=== PATIENT | female | born 1995 | race Caucasian/White ===

== ENCOUNTER 2017-04-15 19:35 | Emergency (ER) | payer BC ==
--- NOTE | 2017-04-15 20:32 | DIAGNOSTIC IMAGING REPORT ---
PROCEDURE: CT HEAD WITHOUT CONTRAST INDICATION: Fell off horse. TECHNIQUE: Noncontrast axial images with sagittal and coronal reformations. COMPARISON: None. FINDINGS: Sulci, ventricular system, and brain parenchyma are normal. No evidence of acute intracranial process. Left parietal scalp contusion. No fracture. Visualized mastoids and sinuses are clear. IMPRESSION: 1. No acute intracranial abnormality 2. Left parietal scalp contusion 3. Findings discussed with Dr. Gutierrez at 08:33 p.m., [place] Standard Time
--- NOTE | 2017-04-15 20:44 | DIAGNOSTIC IMAGING REPORT ---
PROCEDURE: CT CERVICAL SPINE W/O CONTRAST CLINICAL INDICATION: Fell off horse TECHNIQUE: Noncontrast axial images with sagittal and coronal reformations. COMPARISON: None. FINDINGS: Fracture of the right occipital condyle, fragment measuring 7 mm, with minimal displacement. No additional fractures. Straightening of the cervical spine. No foraminal or spinal stenosis. Paraspinal soft tissues are unremarkable. IMPRESSION: 1. Right occipital condyle fracture with minimal displacement 2. Results discussed with Dr. Gutierrez All CT scans at this facility use dose modulation, iterative reconstruction, and/or weight-based dosing when appropriate to reduce radiation dose to as low as reasonably achievable.
--- NOTE | 2017-04-15 20:44 | DIAGNOSTIC IMAGING REPORT ---
PROCEDURE: CT SINUS/FACIAL BONES W/O CONT CLINICAL INDICATION: Fell from horse. TECHNIQUE: Noncontrast axial images with coronal reformations. COMPARISON: None. FINDINGS: Fracture of the right occipital condyle with minimal displacement. Mandible, nasal bone, zygomatic arches and pterygoid plates are intact. Normal paranasal sinuses and mastoids. Normal globes and orbits. Left parietal scalp and scalp contusion. Normal zygomatic arches. IMPRESSION: 1. Fracture of the right occipital condyle with minimal displacement. 2. Results discussed with Dr. Gutierrez All CT scans at this facility use dose modulation, iterative reconstruction, and/or weight-based dosing when appropriate to reduce radiation dose to as low as reasonably achievable.
--- NOTE | 2017-04-15 21:33 | DIAGNOSTIC IMAGING REPORT ---
PROCEDURE: CT THORAX ABD PELVIS W/CONT INDICATION: Fell from horse. TECHNIQUE: 125 ml of Isovue 300 injected intravenously and axial images were obtained of the entire thorax, abdomen, and pelvis with sagittal and coronal reformations. COMPARISON: None. FINDINGS: THORAX: Minor left basilar atelectasis and pleural effusion. No pneumothorax. No adenopathy. Normal thoracic aorta without dissection or aneurysm. There is no mediastinal hematoma. Residual thymus tissue. Heart size is normal. No fracture. ABDOMEN: Liver, gallbladder, pancreas, spleen, adrenal glands, kidneys and abdominal aorta are normal. No free fluid or free air. No fracture. PELVIS: The uterus, adnexa and bladder are normal. No free fluid or free air. No fracture. IMPRESSION: 1. Minor left basilar atelectasis and effusion but no evidence of a fracture 2. Results discussed with Dr. Gutierrez All CT scans at this facility use dose modulation, iterative reconstruction, and/or weight-based dosing when appropriate to reduce radiation dose to as low as reasonably achievable.
--- NOTE | 2017-04-15 21:37 | ED CLINICAL REPORT ---
Clinical Report - Physicians/Mid Levels [facility] [address] [place] [address] 04/15/2017 19:36 Patient: EDUARDO JOHNSON Time Seen: 1938. Arrived- By ambulance. Historian- patient and family. HISTORY OF PRESENT ILLNESS Location of injuries- (left flank, shoulder, face, head, neck). Chief Complaint: FALL. This occurred just prior to arrival. Occurred field. Fell (from horse). The patient complains of moderate pain. The patient sustained a blow to the head and complains of neck pain. The patient had loss of consciousness. (3 minutes). (Thrown forward from horse back. Horse was spooked and patient was launched forward.). REVIEW OF SYSTEMS No difficulty breathing. All systems otherwise negative, except as recorded above. PAST HISTORY See nurses notes. Tetanus immunization status is up-to-date. Problems: no known problems. Additional Surgeries: no known surgeries. Medications: Control Pills. Allergies: No Known Drug Allergy. SOCIAL HISTORY Never smoker. No alcohol use or drug use. No recent travel. Is a local resident. ADDITIONAL NOTES The nursing notes have been reviewed. PHYSICAL EXAM Vital Signs: 04/15/2017 20:16 BP: 125/60. HR: 100. O2 saturation: 100%. 04/15/2017 19:47 BP: 122/69. 04/15/2017 19:39 HR: 100. RR: 16. O2 saturation: 100%. Pain level now: 8/10. Oxygen saturation normal. Appearance: Alert. Oriented X3. No acute distress. Head: Head non-tender. No swelling of head. No Chairez's sign or raccoon eyes. Eyes: Pupils equal, round and reactive to light. Pupillary exam: Right pupil 3mm, round and reactive to light directly and consensually and with accommodation. Left pupil: 3mm, round and reactive to light directly and consensually and with accommodation. EOM intact. ENT: No dental injury. No hemotympanum. Pharynx normal. No malocclusion. Neck: Neck non-tender. Painless ROM. No vertebral tenderness. CVS: Heart sounds normal. Pulses normal. Respiratory: Breath sounds normal. Chest nontender. Abdomen: No visible injury. Soft and nontender. Bowel sounds normal. No organomegaly. No mass. Femoral pulses equal. Back: No tenderness. ROM normal. Skin: Skin intact. Skin warm and dry. Normal skin color. Normal skin turgor. (except for superficial abrasions to the left upper extremity and face.). Extremities: (left anterior shoulder and proximal arm tenderness. no crepitus. no maria de jesus abnormalities. compartments soft. neurovasc intact. pulses 2+ and symmetrical.). Neuro: [place] Coma Scale: 15- eyes open spontaneously (4); best verbal response- oriented x 3 (5); best motor response- obeys commands (6). Oriented X 3. No motor deficit. No sensory deficit. LABS, X-RAYS, AND EKG CT Face: PROCEDURE: CT CERVICAL SPINE W/O CONTRAST CLINICAL INDICATION: Fell off horse TECHNIQUE: Noncontrast axial images with sagittal and coronal reformations. COMPARISON: None. FINDINGS: Fracture of the right occipital condyle, fragment measuring 7 mm, with minimal displacement. No additional fractures. Straightening of the cervical spine. No foraminal or spinal stenosis. Paraspinal soft tissues are unremarkable. IMPRESSION: 1. Right occipital condyle fracture with minimal displacement. The study was independently viewed by me and interpreted by the radiologist. The study was discussed with the radiologist (via pacs and phone). CT C-Spine: (PROCEDURE: CT CERVICAL SPINE W/O CONTRAST CLINICAL INDICATION: Fell off horse TECHNIQUE: Noncontrast axial images with sagittal and coronal reformations. COMPARISON: None. FINDINGS: Fracture of the right occipital condyle, fragment measuring 7 mm, with minimal displacement. No additional fractures. Straightening of the cervical spine. No foraminal or spinal stenosis. Paraspinal soft tissues are unremarkable. IMPRESSION: 1. Right occipital condyle fracture with minimal displacement). The study was independently viewed by me and interpreted by the radiologist. The study was discussed with the radiologist (via phone and pacs). CT Head: (PROCEDURE: CT HEAD WITHOUT CONTRAST INDICATION: Fell off horse. TECHNIQUE: Noncontrast axial images with sagittal and coronal reformations. COMPARISON: None. FINDINGS: Sulci, ventricular system, and brain parenchyma are normal. No evidence of acute intracranial process. Left parietal scalp contusion. No fracture. Visualized mastoids and sinuses are clear. IMPRESSION: 1. No acute intracranial abnormality 2. Left parietal scalp contusion). The study was independently viewed by me and interpreted by the radiologist. The study was discussed with the radiologist (via pacs and phone). Note - Special Studies: PROCEDURE: CT THORAX ABD PELVIS W/CONT INDICATION: Fell from horse. TECHNIQUE: 125 ml of Isovue 300 injected intravenously and axial images were obtained of the entire thorax, abdomen, and pelvis with sagittal and coronal reformations. COMPARISON: None. FINDINGS: THORAX: Minor left basilar atelectasis and pleural effusion. No pneumothorax. No adenopathy. Normal thoracic aorta without dissection or aneurysm. There is no mediastinal hematoma. Residual thymus tissue. Heart size is normal. No fracture. ABDOMEN: Liver, gallbladder, pancreas, spleen, adrenal glands, kidneys and abdominal aorta are normal. No free fluid or free air. No fracture. PELVIS: The uterus, adnexa and bladder are normal. No free fluid or free air. No fracture. IMPRESSION: 1. Minor left basilar atelectasis and effusion but no evidence of a fracture Discussed with radiology via phone and pacs. Reviewed by me. Interpreted by radiology. Laboratory Tests: UA-Culture if indicated: (SUJEY: 04/15/2017 20:05) ( MsgRcvd 04/15/2017 20:21) Final results Test Result Flag Units (Reference) URINE COLOR YELLOW URINE APPEARANCE CLEAR URINE GLUCOSE NEGATIVE (NEGATIVE) URINE BILIRUBIN NEGATIVE (NEGATIVE) URINE KETONE TRACE (NEGATIVE) URINE SPECIFIC GRAVITY 1.015 (1.010-1.030) URINE PH 7.0 (5.0-8.0) URINE PROTEIN NEGATIVE (NEGATIVE) URINE UROBILINOGEN 0.2 EU/dL (0.2-1.0) URINE NITRITE NEGATIVE (NEGATIVE) URINE BLOOD NEGATIVE (NEGATIVE) URINE LEUK ESTERASE NEGATIVE (NEGATIVE) URINE RBC NONE SEEN rbc/hpf (0-1) URINE WBC NONE SEEN wbc/hpf (0-1) URINE EPITHELIAL CELLS 0-1 EPI/hpf (0-5) URINE BACTERIA NONE SEEN (NONE SEEN) URINE COMMENT CULT NOT INDICATED URINE CULTURES ARE SET-UP BASED ON THE FOLLOWING CRITERIA:POSITIVE NITRITEPOSITIVE LEUKOCYTE ESTERASEGREATER THAN 10 WHITE BLOOD CELLSMODERATE (2+) OR GREATER BACTERIA Urine: (SUJEY: 04/15/2017 20:05) ( [facility] 04/15/2017 20:16) Final results Test Result Flag Units (Reference) URINE NEGATIVE CBC w Diff: (SUJEY: 04/15/2017 19:50) ( [facility] 04/15/2017 20:09) Final results Test Result Flag Units (Reference) WHITE BLOOD COUNT 12.4 H K/uL (4.5-11.5) RED BLOOD COUNT 4.14 M/uL (4.00-5.20) HEMOGLOBIN 12.4 gm/dL (12.0-16.0) HEMATOCRIT 36.7 % (36.0-46.0) MEAN CELL VOLUME 89 fL (80-100) MEAN CORPUSCULAR HGB 30 pg (26-34) MEAN CORPUSCULAR HGB CONC 34 g/dL (31-37) RED CELL DISTRIBUTION WIDTH 13.3 % (11.6-14.8) PLATELET COUNT 195 K/uL (150-400) NEUTROPHIL % 73.4 % (50-75) LYMPH % 20.3 L % (25-40) MONO % 6.0 % (3-14) EOSINOPHIL % 0.1 % (0-4) BASOPHIL % 0.2 % (0-2) PT with INR: (SUJEY: 04/15/2017 19:50) ( [facility] 04/15/2017 20:16) Final results Test Result Flag Units (Reference) INR 0.9 (0.8-1.2) Low Intensity Therapy: INR 1.5-2.0 PT range 18.5-23.1Mod.Intensity Therapy: INR 2.0-3.0 PT range 23.1-31.5High Intensity Therapy: INR 2.5-3.5 PT range 27.4-35.5High Intensity Therapy 2: INR 3.0-4.0 PT range 31.5-39.3 APTT 23 L SECONDS (24-34) CMP: (SUJEY: 04/15/2017 19:50) ( [facility] 04/15/2017 20:24) Final results Test Result Flag Units (Reference) GLUCOSE 112 H mg/dL (70-110) BUN 8 mg/dL (7-18) CREATININE 0.8 mg/dL (0.6-1.3) Estimated GFR >60 mL/min Estimated GFR- >60 mL/min Note: Persistent reduction over 3 months in eGFR<60 mL/min/1.73 m2 defines CKD. Patients with eGFR values>=60 mL/min/1.73 m2 may also have CKD if evidence ofpersistent proteinuria. Additional information may be foundat www.kidney.org. SODIUM 143 mmol/L (136-145) POTASSIUM 3.7 mmol/L (3.5-5.1) CHLORIDE 106 mmol/L (98-107) CARBON DIOXIDE 24 mmol/L (21-32) CALCIUM 8.7 mg/dL (8.5-10.1) TOTAL PROTEIN 7.1 g/dL (6.4-8.2) ALBUMIN 3.5 g/dL (3.3-5.0) BILIRUBIN, TOTAL 0.3 mg/dL (0.0-1.0) ALKALINE PHOSPHATASE 41 L U/L (46-116) AST (SGOT) 34 U/L (15-37) ALT (SGPT) 39 U/L (12-78) LIPASE 73 U/L (73-393) Type & Screen: (SUJEY: 04/15/2017 19:50) ( MsgRcvd 04/15/2017 20:33) IP Test Result Flag Units (Reference) PATIENT BLOOD TYPE A Positive . PROGRESS AND PROCEDURES Course of Care: the patient is a pleasant 22-year-old female presenting for evaluation of traumatic injury to the left side of the torso as well as left shoulder neck, and face. Patient with loss of consciousness at about 3 minutes. Episode was witnessed. Pain is mechanism of injury given the patient was thrown from a horse. Because of this, CT scan of the patient's head, neck, face, and chest/abdomen and pelvis will be obtained. Initially, radiographs of the left upper extremity were ordered however because of the diagnostic technician was able to include the patient's arms and the CT scan,felt the CT scan was patient for evaluation of the patient's upper extremity injury. Was able to contact radiology in regards to the patient's CT scan results. Was informed by radiology of a Right occipital condyle fracture. Was able to contact spine surgery over at [facility]. We are currently awaiting the recommendations. Was able to contact the transfer service. Unfortunately there is a surgical emergency and the spine surgery team are currently unavailable. Patient will be monitored here in the emergency department and is currently awaiting disposition per spine surgery's recommendation. While patient was here, patient has had a few episodes of nausea. Patient has been given nausea medication. Patient unfortunately continued to have an episode of nausea when she awokefrom a short nap. Phenergan was ordered. No other acute abnormalities noted. Patient continues to be neuro intact. Was able to speak to spine surgery at [facility]. recommeneded patient having films while in the color to assess for instability. Patient also can follow up in clinic. Patient agreeable to the plan. Films did not show any signs of instability. Because no shift was noted, felt the patient did not need to be transferred to [facility]. Discussed with patient her workup in the emergency department including diagnosis, home care, follow-up, and return precautions. All questions have been answered. The patient expressed understanding of these instructions and was agreeable to them. Prior to patient's discharge from the emergency department she was noted to resting in bed and in no acute distress. Neurological examination remains intact. Consult obtained. [facility] spine surgery. Disposition: Discharged. Condition: good. CLINICAL IMPRESSION Minor blunt injury to the abdomen (left flank). Closed occipital condyle fracture. Acute cervical strain (left sided). Multiple superficial abrasions. (left face and left upper extremity). INSTRUCTIONS Warnings: GENERAL WARNINGS: Return or contact your physician immediately if your condition worsens or changes unexpectedly, if not improving as expected, or if other problems arise. SPECIFICALLY, return if you develop weakness, numbness, tingling, pain or incontinence. abnormal behavior, changes in vision, or other concerns. Your Current Medications: CONTINUE TAKING THE FOLLOWING MEDICATIONS: Control Pills*. Prescription Medications: Zofran (orally disintegrating tablets) 4 mg: take 1 orally every 8 hours as needed for nausea and vomiting. Dispense fifteen (15). No refill. Substitution is permissible. Percocet 5 mg/325 mg: take 1-2 tablets orally every 6 hours as needed for pain. Dispense thirty (30). No refill. Substitution is permissible. Follow-up: Return to the emergency department as needed. Follow up with your doctor in three days. Reason for referral: recheck today's concerns. Summary of care provided to patient via paper. Follow up with doctor Ortho spine. Reason for referral: recheck today's concerns in 1 - 2 weeks. Call if they do not contact you next week with your appointment time.. Summary of care provided to patient and family via paper. Screening today revealed the patient's blood pressure to be in the normal range. The patient should follow up with a primary care provider for blood pressure management. Understanding of the discharge instructions verbalized by patient and family. (Electronically signed by Lemuel Gutierrez Dr. 04/23/2017 4:35)
--- NOTE | 2017-04-15 21:37 | ED ORDER SUMMARY ---
..... Patient: EDUARDO JOHNSON OrderSheet [facility] VisitID: [id number] [place] [address] 22y, F Registration Date/Time: 04/15/2017 ORDER SHEET Weight: 79.3 kg (stated) Allergies: No Known Drug Allergy GENERAL ORDERS: CT Cervical Spine wo Cont Urgent (19:44 04/15/2017 Sg Hunt) (Ack 19:50 OSjose m) (20:37 Ezekiel) CT Head wo Cont Urgent (19:45 04/15/2017 Sg Hunt) (Ack 19:50 OSnell) (20:37 Ezekiel) CT Sinus/Facial Bones wo Cont Urgent (:45 04/15/2017 Sg Hunt) (Ack 19:50 OSnell) (20:37 Ezekiel) CT Thorax/Abd/Pelvis w Cont (No) (N/A) Urgent (:45 04/15/2017 Sg Hunt) (Ack 19:50 OSjose m) (20:37 Ezekiel) CBC w Diff Urgent (19:45 04/15/2017 Sg Hunt) (Ack 19:50 OSjose m) (20:51 HSoule) CMP Urgent (:45 04/15/2017 Sg Hunt) (Ack 19:50 OSnell) (20:51 HSoule) UA-Culture if indicated Urgent (19:45 04/15/2017 Sg Hunt) (Ack 19:50 OSjose m) (20:51 HSoule) PT with INR Urgent (19:45 04/15/2017 Sg Hunt) (Ack 19:50 OSjose m) (20:51 HSoule) PTT Urgent (19:45 04/15/2017 Sg Hunt) (Ack 19:50 OSjose m) (20:51 HSoule) Lipase Urgent (:45 04/15/2017 Sg Hunt) (Ack 19:50 OSnell) (20:51 HSoule) Urine Urgent (19:45 04/15/2017 Sg Hunt) (Ack 19:49 OSnell) (20:51 HSoule) Type & Screen Urgent (19:45 04/15/2017 Sg Hunt) (Ack 19:50 OSnell) (20:51 HSoule) Shoulder 2V or more Left Urgent (20:08 04/15/2017 Sg Hunt) (Ack 20:14 Fareed) (Cancelled: Duplicate Order20:57 Sg Hunt) Humerus Left Urgent (20:08 04/15/2017 Sg Hunt) (Ack 20:14 Fareed) (Cancelled: Duplicate Order20:57 Sg Hunt) Cervical Spine 2 or 3V Urgent (23:23 04/15/2017 Sg Hunt) (Ack 23:28 OSjose m) (23:45 RFay) MEDICATION ORDERS: Phenergan IV 25 mg (NOW) (22:44 04/15/2017 Beba verbal order read back to Sg Hunt) ([facility] IV FLUIDS: IV NS : initial bolus 2L, then none - for X1 (NOW) (19:45 04/15/2017 Sg Hunt) (Ack 19:48 HSoule) (19:53 HSoule) Fentanyl IV 25 mcg (once every 30 minutes as needed for pain > 5/10) (19:46 04/15/2017 Sg Hunt) (Ack 19:48 HSoule) (19:54 HSoule) Zofran IV 4 mg (NOW) (20:48 04/15/2017 Sg Hunt) (20:49 HSoule) Ativan IV 0.5 mg (HIGH ALERT MEDICATION, NOW) (21:32 04/15/2017 Sg Hunt) (Ack 21:33 HSoule) (21:37 HSoule) Dilaudid IV 1 mg (HIGH ALERT MEDICATION, NOW) (21:50 04/15/2017 Sg Hunt) (Ack 21:53 HSoule) (21:53 HSoule) ORDER SHEET NOTES: [Electronically signed by Yohana Anderson (00:40 04/16/2017)] [Electronically signed by Lemuel Gutierrez Dr. (04:35 04/23/2017)] [Electronically locked/signed by Yohana Anderson (00:40 04/16/2017)]
--- NOTE | 2017-04-15 21:37 | ED ORDER SUMMARY ---
..... Patient: EDUARDO JOHNSON OrderSheet [facility] VisitID: [id number] [place] [address] 22y, F Registration Date/Time: 04/15/2017 ORDER SHEET Weight: 79.3 kg (stated) Allergies: No Known Drug Allergy GENERAL ORDERS: CT Cervical Spine wo Cont Urgent (19:44 04/15/2017 Sg Hunt) (Ack 19:50 OSjose m) (20:37 Ezekiel) CT Head wo Cont Urgent (19:45 04/15/2017 Sg Hunt) (Ack 19:50 OSnell) (20:37 Ezekiel) CT Sinus/Facial Bones wo Cont Urgent (:45 04/15/2017 Sg Hunt) (Ack 19:50 OSnell) (20:37 Ezekiel) CT Thorax/Abd/Pelvis w Cont (No) (N/A) Urgent (:45 04/15/2017 Sg Hunt) (Ack 19:50 OSjose m) (20:37 Ezekiel) CBC w Diff Urgent (19:45 04/15/2017 Sg Hunt) (Ack 19:50 OSjose m) (20:51 HSoule) CMP Urgent (:45 04/15/2017 Sg Hunt) (Ack 19:50 OSnell) (20:51 HSoule) UA-Culture if indicated Urgent (19:45 04/15/2017 Sg Hunt) (Ack 19:50 OSjose m) (20:51 HSoule) PT with INR Urgent (19:45 04/15/2017 Sg Hunt) (Ack 19:50 OSjose m) (20:51 HSoule) PTT Urgent (19:45 04/15/2017 Sg Hunt) (Ack 19:50 OSjose m) (20:51 HSoule) Lipase Urgent (:45 04/15/2017 Sg Hunt) (Ack 19:50 OSnell) (20:51 HSoule) Urine Urgent (19:45 04/15/2017 Sg Hunt) (Ack 19:49 OSnell) (20:51 HSoule) Type & Screen Urgent (19:45 04/15/2017 Sg Hunt) (Ack 19:50 OSnell) (20:51 HSoule) Shoulder 2V or more Left Urgent (20:08 04/15/2017 Sg Hunt) (Ack 20:14 Fareed) (Cancelled: Duplicate Order20:57 Sg Hunt) Humerus Left Urgent (20:08 04/15/2017 Sg Hunt) (Ack 20:14 Fareed) (Cancelled: Duplicate Order20:57 Sg Hunt) Cervical Spine 2 or 3V Urgent (23:23 04/15/2017 Sg Hunt) (Ack 23:28 OSjose m) (23:45 RFay) MEDICATION ORDERS: Phenergan IV 25 mg (NOW) (22:44 04/15/2017 Beba verbal order read back to Sg Hunt) ([facility] IV FLUIDS: IV NS : initial bolus 2L, then none - for X1 (NOW) (19:45 04/15/2017 Sg Hunt) (Ack 19:48 HSoule) (19:53 HSoule) Fentanyl IV 25 mcg (once every 30 minutes as needed for pain > 5/10) (19:46 04/15/2017 Sg Hunt) (Ack 19:48 HSoule) (19:54 HSoule) Zofran IV 4 mg (NOW) (20:48 04/15/2017 Sg Hunt) (20:49 HSoule) Ativan IV 0.5 mg (HIGH ALERT MEDICATION, NOW) (21:32 04/15/2017 Sg Hunt) (Ack 21:33 HSoule) (21:37 HSoule) Dilaudid IV 1 mg (HIGH ALERT MEDICATION, NOW) (21:50 04/15/2017 Sg Hunt) (Ack 21:53 HSoule) (21:53 HSoule) ORDER SHEET NOTES: [Electronically signed by Yohana Anderson (00:40 04/16/2017)] [Electronically signed by Lemuel Gutierrez Dr. (04:35 04/23/2017)] [Electronically locked/signed by Yohana Anderson (00:40 04/16/2017)]
--- NOTE | 2017-04-15 21:37 | ED NURSING NOTES ---
Clinical Report - Nurses [facility] [address] [place] [address] 04/15/2017 19:36 Patient: EDUARDO JOHNSON TRIAGE Triage time 19:40 Apr 15 2017. Acuity: LEVEL 2. Chief Complaint: FALL 4-5 FEET OFF A HORSE while riding, onto the ground and landed on their head and face down. 19:45 04/15/17. SEPSIS SCREEN: Sepsis Screen: negative. Negative (no infection suspected/documented). THERESA COMA SCORE: [place] Coma Scale: 15- eyes open spontaneously (4); best verbal response- oriented x 4 (5); best motor response- obeys commands (6). --19:45 Yohana Anderson 19:39 04/15/17. HR: 100. RR: 16. O2 saturation: 100%. Pain level now: 07/07. --19:45 Yohana Anderson 19:47 04/15/17. BP: 122/69. --19:48 Yohana Anderson 19:39 04/15/17. Temp: 98.8 F (oral). --00:40 Yohana Anderson. Weight: 79.3 kg stated. Height/Length: 67 inches Per Patient. BMI: 27.4. --19:45 Yohana Anderson. Medications Control Pills. --19:43 Yohana Anderson. Allergies No Known Drug Allergy. --19:43 Yohana Anderson. Medication/allergy information source: the patient. --19:45 Yohana Anderson. History Arrived by EMS. Historian: patient and family. Accompanied by family. Location of injuries: face and back. This occurred just prior to arrival. ( Patient was riding her horse when her horse spooked and stopped abruptly. Patient was thrown off the front of the horse and hit the ground. She had a two minute loss of consciousness per the family. Patient complains of left back pain and some head pain.). Treatment NUCLEAR MEDICINE PHYSICIAN: See EMS report. EMS treatment NUCLEAR MEDICINE PHYSICIAN verbally communicated and report reviewed. See report. BP: 180 palp. RR: 16. O2 saturation: 100. Trauma activation: Modified Trauma Activation. Pre-hospital notification of patient arrival was received. PAST MEDICAL HX: Tetanus status: unknown. Immunizations: up-to-date. Last normal menstrual period- 2 weeks ago. SOCIAL HX: Never smoker. Occasional alcohol use. No drug use. No infectious disease exposure. ABUSE ASSESSMENT: No report of abuse. FALL RISK ASSESSMENT: Fall risk assessment completed. No fall risk identified. NUTRITIONAL RISK ASSESSMENT: The nutritional risk assessment revealed no deficiencies. FUNCTIONAL ASSESSMENT: Functional assessment: no impairments noted. LEARNING NEEDS ASSESSMENT: The learning needs assessment revealed no barriers. SKIN INTEGRITY ASSESSMENT: Skin integrity risk assessment completed. No skin integrity risk identified. --19:45 Yohana Anderson. PROBLEMS: no known problems. ADDITIONAL SURGERIES: no known surgeries. Interventions ID band on patient. To treatment room. --19:45 Yohana Anderson. 19:42 04/15/2017 Site #1 started via IV in the left antecubital space with an 20g angiocath, with aseptic technique and good blood return; one attempt. Blood drawn: rainbow set. Labeled in the presence of the patient and sent to the lab. Saline lock flushed with 10 mL saline. --19:42 Yohana Anderson. PHYSICAL ASSESSMENT To room via stretcher. GENERAL / NEURO / PSYCH: Alert. Oriented X 4. Appears in no acute distress. [place] Coma Scale: 15- eyes open spontaneously (4); best verbal response- oriented x 4 (5); best motor response- obeys commands (6). HEENT: Pupils equal, round and reactive to light. Head: tenderness localized to the occipital aspect of the head. ( abrasions to left side of face proximal to eyebrow). RESPIRATORY: Respirations not labored. Breath sounds within normal limits. CVS: Pulses within normal limits. GI / : Abdomen soft and nontender. SKIN: Skin is warm and dry. BACK: Back: tenderness located in the left lumbar area. --19:47 Yohana Anderson. NURSING PROGRESS NOTES C-collar applied. Cold pack applied. Patient gowned. Reassurance given to the patient and parent(s). Two patient identifiers checked. Call light placed in reach. Side rails up x 1. Bed placed in lowest position. Brakes of bed on. Patient ready for evaluation- chart flagged and ED physician notified. --19:47 Yohana Anderson 19:53 04/15/2017 Started bag #1 1000 mL IV Fluids IV NS (Saline); at 1000 mL/hr over 1 hour(s) via site #1. Allergies verified and confirmed 5 rights. IV patency established. IV site checked: no pain, redness, or swelling. IV flushed thoroughly pre- and post-medication administration. --19:53 Yohana Anderson 19:54 04/15/2017 Started bag #2 1000 mL IV Fluids IV NS (Saline); at 1000 mL/hr over 1 hour(s) via site #1. Allergies verified and confirmed 5 rights. IV patency established. IV site checked: no pain, redness, or swelling. IV flushed thoroughly pre- and post-medication administration (Started by EMS on transport, 200 ml infused upon arrival.). --19:54 Solomon Andersonnah 19:54 04/15/2017 Fentanyl IVP 25 mcg given over 2 minute(s) via site #1. Sedative warning given to the patient and patient's family. IV patency established. IV site checked: no pain, redness, or swelling. IV flushed thoroughly pre- and post-medication administration. IVP given by RN. --19:54 Yohana Anderson Patient ID band checked for patient name and birthdate: patient confirmed. Blood samples drawn from the right antecubital space with 22g butterfly by nurse per protocol ; labeled in presence of the patient and sent to lab: ryan set. --19:54 JustinKatie ellisonh In/out catheterization. Reason for indwelling catheter: trauma. During procedure hand hygiene observed and sterile equipment and aseptic technique used. Return of less than 50 mL yellow-colored clear urine. She tolerated procedure well. --20:15 Yohana Anderson Patient transported to MI by stretcher with tech. (20:16 Apr 15 2017). --20:16 Yohana Anderson 20:15 04/15/17. BP: 125/60. HR: 100. O2 saturation: 100% on room air. --20:16 Yohana Anderson Patient returned from MI by stretcher with tech. (20:41 Apr 15 2017). --20:41 Yohana Anderson 20:44 04/15/17. BP: 135/70. HR: 98. RR: 20. O2 saturation: 100% on room air. Pain level now: 10. --20:45 Yohana Anderson 20:45 04/15/2017 Fentanyl IVP 25 mcg given over 2 minute(s) via site #1. Allergies verified, confirmed 5 rights and sedative warning given to the patient and patient's family. IV patency established. IV site checked: no pain, redness, or swelling. IV flushed thoroughly pre- and post-medication administration. IVP given by RN. --20:45 Yohana Anderson GENERAL / NEURO / PSYCH: Alert. [place] Coma Scale: 15- eyes open spontaneously (4); best verbal response- oriented x 4 (5); best motor response- obeys commands (6). Oriented X 4. RESPIRATORY: No respiratory distress. --20:46 Yohana Anderson 20:49 04/15/2017 Zofran (Ondansetron HCl) IVP 4 mg given over 2 minute(s) via site #1. Allergies verified and confirmed 5 rights. IV patency established. IV site checked: no pain, redness, or swelling. IV flushed thoroughly pre- and post-medication administration. IVP given by RN. --20:49 Yohana Anderson 21:12 04/15/17. BP: 130/74. HR: 99. RR: 20. O2 saturation: 100% on room air. Pain level now: 04/06. --21:13 Yohana Anderson ( Provider at bedside discussing plan of care with patient and her family.). --21:24 Yohana Anderson 21:33 04/15/2017 IV Fluids IV NS Discontinued: bag #1 completed. Total amount infused: 1000 mL. IV patency established. IV site checked: no pain, redness, or swelling. IV flushed thoroughly. --21:33 Yohana Anderson 21:37 04/15/2017 Ativan (LORazepam) IVP 0.5 mg given over 1 minute(s) via site #1. Allergies verified, confirmed 5 rights and sedative warning given to the patient and patient's family. IV patency established. IV site checked: no pain, redness, or swelling. IV flushed thoroughly pre- and post-medication administration. IVP given by RN. --21:37 Yohana Anderson 21:44 04/15/2017 Fentanyl IVP 25 mcg given over 2 minute(s) via site #1. Allergies verified, confirmed 5 rights and sedative warning given to the patient and patient's family. IV patency established. IV site checked: no pain, redness, or swelling. IV flushed thoroughly pre- and post-medication administration. IVP given by RN. --21:49 Yohana Anderson 21:49 04/15/17. BP: 130/71. HR: 97. O2 saturation: 100%. Pain level now: 07/07. --21:52 Yohana Anderson 21:53 04/15/2017 Dilaudid (HYDROmorphone HCl PF) IVP 1 mg given over 2 minute(s) via site #1. Allergies verified, confirmed 5 rights and sedative warning given to the patient and patient's family. IV patency established. IV site checked: no pain, redness, or swelling. IV flushed thoroughly pre- and post-medication administration. IVP given by RN. --21:53 Yohana Anderson 21:53 04/15/2017 IV Fluids IV NS Discontinued: bag #2 completed. Total amount infused: 1000 mL. IV patency established. IV site checked: no pain, redness, or swelling. IV flushed thoroughly. --21:53 Yohana Anderson 22:22 04/15/17. BP: 126/72. HR: 95. RR: 20. O2 saturation: 99% on room air. Pain level now: 01/07. --22:23 Yohana Anderson Reassessment after medication administered. Overall patient status- she states feels better. RESPIRATORY: No respiratory distress. --22:23 Yohana Anderson 22:44 04/15/2017 PHENERGAN (Promethazine HCl) IVP 25 mg given diluted in NS via site #1. Allergies verified and confirmed 5 rights. IV patency established. IV site checked: no pain, redness, or swelling. IV flushed thoroughly pre- and post-medication administration. IVP given by RN. --22:44 Lizbeth Garcia 22:54 04/15/17. BP: 125/65. HR: 100. RR: 20. O2 saturation: 97% on room air. Pain level now: 02/04. --22:55 Yohana Anderson 23:17 04/15/17. BP: 136/70. HR: 96. RR: 20. O2 saturation: 99% on room air. Pain level now: 01/07. --23:17 Yohana Anderson ( Patient family at bedside. Family and patient updated regarding plan of care. Patient wanting provider to speak to her family member who is a doctor. Patient giving consent for ER provider to share information with her family member.). --23:18 Yohana Anderson Patient transported to radiology by stretcher with tech. (23:34 Apr 15 2017). --23:34 Yohana Anderson Patient returned from radiology by stretcher with tech. (23:43 Apr 15 2017). --23:43 Yohana Anderson ( 0000: cleaned the wound (face) and applied bacitracin). --00:06 Jocelynn Cary. DISPOSITION / DISCHARGE The goals identified in the patient's plan of care were met. ( Provider at bedside discussing discharge precautions and instructions with patient). FALL RISK ASSESSMENT: Fall risk assessment completed. No fall risk identified. --23:57 Yohana Anderson 23:56 04/15/17. BP: 120/57. HR: 91. RR: 20. O2 saturation: 99% on room air. Pain level now: 01/07. --23:57 Yohana Anderson 00:12 04/16/2017 Site #1 removed upon discharge. Catheter intact. Bandaid applied. --00:22 Yohana Anderson Condition at departure: stable. No learning barriers present. Discharge instructions provided and reviewed with the patient and family. Reviewed warnings (DO not drive while on sedative medications). Reviewed medication(s) side effects, precautions, dosing and course information. Prescription(s) given to the patient. Reviewed wound care instructions. Patient verbalized understanding. Written instructions provided in Maltese. ( Keep C-collar on while ambulating and doing activity. Per provider you need to return immediately if you have numbness, tingling, incontinence, weakness in extremities or increase in pain. Take medications as prescribed and an anti-inflammatory as needed. Ice may help with pain. Note was given for work and school for one week. Follow up orthopedic and spine doctor , contact information provided.). The patient was discharged by the physician. She was discharged home and accompanied by family. She left the Emergency Department in a wheelchair and via private vehicle. Family member driving. ( C-collar checked prior to discharge). --00:25 Yohana Anderson. Locked/Released at 04/16/2017 0:40 by Yohana Anderson,
--- NOTE | 2017-04-15 21:37 | ED CLINICAL REPORT ---
Clinical Report - Physicians/Mid Levels [facility] [address] [place] [address] 04/15/2017 19:36 Patient: EDUARDO JOHNSON Time Seen: 1938. Arrived- By ambulance. Historian- patient and family. HISTORY OF PRESENT ILLNESS Location of injuries- (left flank, shoulder, face, head, neck). Chief Complaint: FALL. This occurred just prior to arrival. Occurred field. Fell (from horse). The patient complains of moderate pain. The patient sustained a blow to the head and complains of neck pain. The patient had loss of consciousness. (3 minutes). (Thrown forward from horse back. Horse was spooked and patient was launched forward.). REVIEW OF SYSTEMS No difficulty breathing. All systems otherwise negative, except as recorded above. PAST HISTORY See nurses notes. Tetanus immunization status is up-to-date. Problems: no known problems. Additional Surgeries: no known surgeries. Medications: Control Pills. Allergies: No Known Drug Allergy. SOCIAL HISTORY Never smoker. No alcohol use or drug use. No recent travel. Is a local resident. ADDITIONAL NOTES The nursing notes have been reviewed. PHYSICAL EXAM Vital Signs: 04/15/2017 20:16 BP: 125/60. HR: 100. O2 saturation: 100%. 04/15/2017 19:47 BP: 122/69. 04/15/2017 19:39 HR: 100. RR: 16. O2 saturation: 100%. Pain level now: 8/10. Oxygen saturation normal. Appearance: Alert. Oriented X3. No acute distress. Head: Head non-tender. No swelling of head. No Chairez's sign or raccoon eyes. Eyes: Pupils equal, round and reactive to light. Pupillary exam: Right pupil 3mm, round and reactive to light directly and consensually and with accommodation. Left pupil: 3mm, round and reactive to light directly and consensually and with accommodation. EOM intact. ENT: No dental injury. No hemotympanum. Pharynx normal. No malocclusion. Neck: Neck non-tender. Painless ROM. No vertebral tenderness. CVS: Heart sounds normal. Pulses normal. Respiratory: Breath sounds normal. Chest nontender. Abdomen: No visible injury. Soft and nontender. Bowel sounds normal. No organomegaly. No mass. Femoral pulses equal. Back: No tenderness. ROM normal. Skin: Skin intact. Skin warm and dry. Normal skin color. Normal skin turgor. (except for superficial abrasions to the left upper extremity and face.). Extremities: (left anterior shoulder and proximal arm tenderness. no crepitus. no maria de jesus abnormalities. compartments soft. neurovasc intact. pulses 2+ and symmetrical.). Neuro: [place] Coma Scale: 15- eyes open spontaneously (4); best verbal response- oriented x 3 (5); best motor response- obeys commands (6). Oriented X 3. No motor deficit. No sensory deficit. LABS, X-RAYS, AND EKG CT Face: PROCEDURE: CT CERVICAL SPINE W/O CONTRAST CLINICAL INDICATION: Fell off horse TECHNIQUE: Noncontrast axial images with sagittal and coronal reformations. COMPARISON: None. FINDINGS: Fracture of the right occipital condyle, fragment measuring 7 mm, with minimal displacement. No additional fractures. Straightening of the cervical spine. No foraminal or spinal stenosis. Paraspinal soft tissues are unremarkable. IMPRESSION: 1. Right occipital condyle fracture with minimal displacement. The study was independently viewed by me and interpreted by the radiologist. The study was discussed with the radiologist (via pacs and phone). CT C-Spine: (PROCEDURE: CT CERVICAL SPINE W/O CONTRAST CLINICAL INDICATION: Fell off horse TECHNIQUE: Noncontrast axial images with sagittal and coronal reformations. COMPARISON: None. FINDINGS: Fracture of the right occipital condyle, fragment measuring 7 mm, with minimal displacement. No additional fractures. Straightening of the cervical spine. No foraminal or spinal stenosis. Paraspinal soft tissues are unremarkable. IMPRESSION: 1. Right occipital condyle fracture with minimal displacement). The study was independently viewed by me and interpreted by the radiologist. The study was discussed with the radiologist (via phone and pacs). CT Head: (PROCEDURE: CT HEAD WITHOUT CONTRAST INDICATION: Fell off horse. TECHNIQUE: Noncontrast axial images with sagittal and coronal reformations. COMPARISON: None. FINDINGS: Sulci, ventricular system, and brain parenchyma are normal. No evidence of acute intracranial process. Left parietal scalp contusion. No fracture. Visualized mastoids and sinuses are clear. IMPRESSION: 1. No acute intracranial abnormality 2. Left parietal scalp contusion). The study was independently viewed by me and interpreted by the radiologist. The study was discussed with the radiologist (via pacs and phone). Note - Special Studies: PROCEDURE: CT THORAX ABD PELVIS W/CONT INDICATION: Fell from horse. TECHNIQUE: 125 ml of Isovue 300 injected intravenously and axial images were obtained of the entire thorax, abdomen, and pelvis with sagittal and coronal reformations. COMPARISON: None. FINDINGS: THORAX: Minor left basilar atelectasis and pleural effusion. No pneumothorax. No adenopathy. Normal thoracic aorta without dissection or aneurysm. There is no mediastinal hematoma. Residual thymus tissue. Heart size is normal. No fracture. ABDOMEN: Liver, gallbladder, pancreas, spleen, adrenal glands, kidneys and abdominal aorta are normal. No free fluid or free air. No fracture. PELVIS: The uterus, adnexa and bladder are normal. No free fluid or free air. No fracture. IMPRESSION: 1. Minor left basilar atelectasis and effusion but no evidence of a fracture Discussed with radiology via phone and pacs. Reviewed by me. Interpreted by radiology. Laboratory Tests: UA-Culture if indicated: (SUJEY: 04/15/2017 20:05) ( MsgRcvd 04/15/2017 20:21) Final results Test Result Flag Units (Reference) URINE COLOR YELLOW URINE APPEARANCE CLEAR URINE GLUCOSE NEGATIVE (NEGATIVE) URINE BILIRUBIN NEGATIVE (NEGATIVE) URINE KETONE TRACE (NEGATIVE) URINE SPECIFIC GRAVITY 1.015 (1.010-1.030) URINE PH 7.0 (5.0-8.0) URINE PROTEIN NEGATIVE (NEGATIVE) URINE UROBILINOGEN 0.2 EU/dL (0.2-1.0) URINE NITRITE NEGATIVE (NEGATIVE) URINE BLOOD NEGATIVE (NEGATIVE) URINE LEUK ESTERASE NEGATIVE (NEGATIVE) URINE RBC NONE SEEN rbc/hpf (0-1) URINE WBC NONE SEEN wbc/hpf (0-1) URINE EPITHELIAL CELLS 0-1 EPI/hpf (0-5) URINE BACTERIA NONE SEEN (NONE SEEN) URINE COMMENT CULT NOT INDICATED URINE CULTURES ARE SET-UP BASED ON THE FOLLOWING CRITERIA:POSITIVE NITRITEPOSITIVE LEUKOCYTE ESTERASEGREATER THAN 10 WHITE BLOOD CELLSMODERATE (2+) OR GREATER BACTERIA Urine: (SUJEY: 04/15/2017 20:05) ( [facility] 04/15/2017 20:16) Final results Test Result Flag Units (Reference) URINE NEGATIVE CBC w Diff: (SUJEY: 04/15/2017 19:50) ( [facility] 04/15/2017 20:09) Final results Test Result Flag Units (Reference) WHITE BLOOD COUNT 12.4 H K/uL (4.5-11.5) RED BLOOD COUNT 4.14 M/uL (4.00-5.20) HEMOGLOBIN 12.4 gm/dL (12.0-16.0) HEMATOCRIT 36.7 % (36.0-46.0) MEAN CELL VOLUME 89 fL (80-100) MEAN CORPUSCULAR HGB 30 pg (26-34) MEAN CORPUSCULAR HGB CONC 34 g/dL (31-37) RED CELL DISTRIBUTION WIDTH 13.3 % (11.6-14.8) PLATELET COUNT 195 K/uL (150-400) NEUTROPHIL % 73.4 % (50-75) LYMPH % 20.3 L % (25-40) MONO % 6.0 % (3-14) EOSINOPHIL % 0.1 % (0-4) BASOPHIL % 0.2 % (0-2) PT with INR: (SUJEY: 04/15/2017 19:50) ( [facility] 04/15/2017 20:16) Final results Test Result Flag Units (Reference) INR 0.9 (0.8-1.2) Low Intensity Therapy: INR 1.5-2.0 PT range 18.5-23.1Mod.Intensity Therapy: INR 2.0-3.0 PT range 23.1-31.5High Intensity Therapy: INR 2.5-3.5 PT range 27.4-35.5High Intensity Therapy 2: INR 3.0-4.0 PT range 31.5-39.3 APTT 23 L SECONDS (24-34) CMP: (SUJEY: 04/15/2017 19:50) ( [facility] 04/15/2017 20:24) Final results Test Result Flag Units (Reference) GLUCOSE 112 H mg/dL (70-110) BUN 8 mg/dL (7-18) CREATININE 0.8 mg/dL (0.6-1.3) Estimated GFR >60 mL/min Estimated GFR- >60 mL/min Note: Persistent reduction over 3 months in eGFR<60 mL/min/1.73 m2 defines CKD. Patients with eGFR values>=60 mL/min/1.73 m2 may also have CKD if evidence ofpersistent proteinuria. Additional information may be foundat [email or web address].org. SODIUM 143 mmol/L (136-145) POTASSIUM 3.7 mmol/L (3.5-5.1) CHLORIDE 106 mmol/L (98-107) CARBON DIOXIDE 24 mmol/L (21-32) CALCIUM 8.7 mg/dL (8.5-10.1) TOTAL PROTEIN 7.1 g/dL (6.4-8.2) ALBUMIN 3.5 g/dL (3.3-5.0) BILIRUBIN, TOTAL 0.3 mg/dL (0.0-1.0) ALKALINE PHOSPHATASE 41 L U/L (46-116) AST (SGOT) 34 U/L (15-37) ALT (SGPT) 39 U/L (12-78) LIPASE 73 U/L (73-393) Type & Screen: (SUJEY: 04/15/2017 19:50) ( MsgRcvd 04/15/2017 20:33) IP Test Result Flag Units (Reference) PATIENT BLOOD TYPE A Positive . PROGRESS AND PROCEDURES Course of Care: the patient is a pleasant 22-year-old female presenting for evaluation of traumatic injury to the left side of the torso as well as left shoulder neck, and face. Patient with loss of consciousness at about 3 minutes. Episode was witnessed. Pain is mechanism of injury given the patient was thrown from a horse. Because of this, CT scan of the patient's head, neck, face, and chest/abdomen and pelvis will be obtained. Initially, radiographs of the left upper extremity were ordered however because of the echocardiography radiology technologist was able to include the patient's arms and the CT scan,felt the CT scan was patient for evaluation of the patient's upper extremity injury. Was able to contact radiology in regards to the patient's CT scan results. Was informed by radiology of a Right occipital condyle fracture. Was able to contact spine surgery over at [facility]. We are currently awaiting the recommendations. Was able to contact the transfer service. Unfortunately there is a surgical emergency and the spine surgery team are currently unavailable. Patient will be monitored here in the emergency department and is currently awaiting disposition per spine surgery's recommendation. While patient was here, patient has had a few episodes of nausea. Patient has been given nausea medication. Patient unfortunately continued to have an episode of nausea when she awokefrom a short nap. Phenergan was ordered. No other acute abnormalities noted. Patient continues to be neuro intact. Was able to speak to spine surgery at [place]. recommeneded patient having films while in the color to assess for instability. Patient also can follow up in clinic. Patient agreeable to the plan. Films did not show any signs of instability. Because no shift was noted, felt the patient did not need to be transferred to [facility]. Discussed with patient her workup in the emergency department including diagnosis, home care, follow-up, and return precautions. All questions have been answered. The patient expressed understanding of these instructions and was agreeable to them. Prior to patient's discharge from the emergency department she was noted to resting in bed and in no acute distress. Neurological examination remains intact. Consult obtained. [facility] spine surgery. Disposition: Discharged. Condition: good. CLINICAL IMPRESSION Minor blunt injury to the abdomen (left flank). Closed occipital condyle fracture. Acute cervical strain (left sided). Multiple superficial abrasions. (left face and left upper extremity). INSTRUCTIONS Warnings: GENERAL WARNINGS: Return or contact your physician immediately if your condition worsens or changes unexpectedly, if not improving as expected, or if other problems arise. SPECIFICALLY, return if you develop weakness, numbness, tingling, pain or incontinence. abnormal behavior, changes in vision, or other concerns. Your Current Medications: CONTINUE TAKING THE FOLLOWING MEDICATIONS: Control Pills*. Prescription Medications: Zofran (orally disintegrating tablets) 4 mg: take 1 orally every 8 hours as needed for nausea and vomiting. Dispense fifteen (15). No refill. Substitution is permissible. Percocet 5 mg/325 mg: take 1-2 tablets orally every 6 hours as needed for pain. Dispense thirty (30). No refill. Substitution is permissible. Follow-up: Return to the emergency department as needed. Follow up with your doctor in three days. Reason for referral: recheck today's concerns. Summary of care provided to patient via paper. Follow up with doctor Orth[facility] spine. Reason for referral: recheck today's concerns in 1 - 2 weeks. Call if they do not contact you next week with your appointment time.. Summary of care provided to patient and family via paper. Screening today revealed the patient's blood pressure to be in the normal range. The patient should follow up with a primary care provider for blood pressure management. Understanding of the discharge instructions verbalized by patient and family. (Electronically signed by Lemuel Gutierrez Dr. 04/23/2017 4:35)
--- NOTE | 2017-04-15 23:47 | DIAGNOSTIC IMAGING REPORT ---
PROCEDURE: XR CERVICAL SPINE 2 OR 3 VIEW INDICATION: UPRIGHT FOR EVALUATION OF INSTABILITY TECHNIQUE: AP and lateral views COMPARISON: CT cervical spine 04/15/2017. FINDINGS: The patient is in a collar. Normal alignment without fracture subluxation. Normal disc spaces. Odontoid and prevertebral soft tissues are normal. IMPRESSION: 1. Normal alignment 2. Results discussed with Dr. Gutierrez
--- NOTE | 2017-04-23 04:36 | ED MAR SUMMARY ---
..... Medication Administration Record [facility] [address], [place] [address] Patient: EDUARDO JOHNSON Visit ID: [id number] 22y, F Weight: 79.3 kg Height/Length: 67 in BMI: 27.4 ALLERGIES: No Known Drug Allergy Start 19:53 04/15/2017 Yohana Anderson,, Stop 21:33 04/15/2017 Yohana Anderson, Medication Administered: IV NS (SALINE), Dose: IV Fluids over 1 hour(s), Rate: 1000 mL/hr, Dispensed: 1000 mL bag, Site: #1 left AC. Medication Ordered: IV NS : initial bolus 2L, then none - for X1 (NOW). Start 19:54 04/15/2017 Yohana Anderson,, Stop 21:53 04/15/2017 Yohana Anderson, Medication Administered: IV NS (SALINE), Dose: IV Fluids over 1 hour(s), Rate: 1000 mL/hr, Dispensed: 1000 mL bag, Site: #1 left AC. Medication Ordered: IV NS : initial bolus 2L, then none - for X1 (NOW). Given 19:54 04/15/2017 Yohana Anderson, Medication Administered: FENTANYL [IVP], Dose: 25 mcg IVP over 2 minute(s), Site: #1 left AC. Medication Ordered: Fentanyl IV 25 mcg (once every 30 minutes as needed for pain > 5/10). Given 20:45 04/15/2017 Yohana nAderson, Medication Administered: FENTANYL [IVP], Dose: 25 mcg IVP over 2 minute(s), Site: #1 left AC. Medication Ordered: Fentanyl IV 25 mcg (once every 30 minutes as needed for pain > 5/10). Given 20:49 04/15/2017 Yohana Anderson, Medication Administered: ZOFRAN [IVP] (ONDANSETRON HCL), Dose: 4 mg IVP over 2 minute(s), Site: #1 left AC. Medication Ordered: Zofran IV 4 mg (NOW). Given 21:37 04/15/2017 Yohana Anderson, Medication Administered: ATIVAN [IVP] (LORAZEPAM), Dose: 0.5 mg IVP over 1 minute(s), Site: #1 left AC. Medication Ordered: Ativan IV 0.5 mg (HIGH ALERT MEDICATION, NOW). Given :04/15/2017 Yohana Anderson, Medication Administered: FENTANYL [IVP], Dose: 25 mcg IVP over 2 minute(s), Site: #1 left AC. Medication Ordered: Fentanyl IV 25 mcg (once every 30 minutes as needed for pain > 5/10). Given :04/15/2017 Yohana Anderson, Medication Administered: DILAUDID [IVP] (HYDROMORPHONE HCL PF), Dose: 1 mg IVP over 2 minute(s), Site: #1 left AC. Medication Ordered: Dilaudid IV 1 mg (HIGH ALERT MEDICATION, NOW). Given :04/15/2017 Lizbeth Garcia, Medication Administered: PHENERGAN [IVP] (PROMETHAZINE HCL), Dose: 25 mg IVP, In: NS, Site: #1 left AC. Medication Ordered: Phenergan IV 25 mg (NOW).
--- NOTE | 2017-04-23 04:36 | ED MAR SUMMARY ---
..... Medication Administration Record [facility] [address], [place] [address] Patient: EDUARDO JOHNSON Visit ID: [id number] 22y, F Weight: 79.3 kg Height/Length: 67 in BMI: 27.4 ALLERGIES: No Known Drug Allergy Start 19:53 04/15/2017 Yohana Anderson,, Stop 21:33 04/15/2017 Yohana Anderson, Medication Administered: IV NS (SALINE), Dose: IV Fluids over 1 hour(s), Rate: 1000 mL/hr, Dispensed: 1000 mL bag, Site: #1 left AC. Medication Ordered: IV NS : initial bolus 2L, then none - for X1 (NOW). Start 19:54 04/15/2017 Yohana Anderson,, Stop 21:53 04/15/2017 Yohana Anderson, Medication Administered: IV NS (SALINE), Dose: IV Fluids over 1 hour(s), Rate: 1000 mL/hr, Dispensed: 1000 mL bag, Site: #1 left AC. Medication Ordered: IV NS : initial bolus 2L, then none - for X1 (NOW). Given 19:54 04/15/2017 Yohana Anderson, Medication Administered: FENTANYL [IVP], Dose: 25 mcg IVP over 2 minute(s), Site: #1 left AC. Medication Ordered: Fentanyl IV 25 mcg (once every 30 minutes as needed for pain > 5/10). Given 20:45 04/15/2017 Yohana Anderson, Medication Administered: FENTANYL [IVP], Dose: 25 mcg IVP over 2 minute(s), Site: #1 left AC. Medication Ordered: Fentanyl IV 25 mcg (once every 30 minutes as needed for pain > 5/10). Given 20:49 04/15/2017 Yohana Anderson, Medication Administered: ZOFRAN [IVP] (ONDANSETRON HCL), Dose: 4 mg IVP over 2 minute(s), Site: #1 left AC. Medication Ordered: Zofran IV 4 mg (NOW). Given 21:37 04/15/2017 Yohana Anderson, Medication Administered: ATIVAN [IVP] (LORAZEPAM), Dose: 0.5 mg IVP over 1 minute(s), Site: #1 left AC. Medication Ordered: Ativan IV 0.5 mg (HIGH ALERT MEDICATION, NOW). Given :04/15/2017 Yohana Anderson, Medication Administered: FENTANYL [IVP], Dose: 25 mcg IVP over 2 minute(s), Site: #1 left AC. Medication Ordered: Fentanyl IV 25 mcg (once every 30 minutes as needed for pain > 5/10). Given :04/15/2017 Yohana Anderson, Medication Administered: DILAUDID [IVP] (HYDROMORPHONE HCL PF), Dose: 1 mg IVP over 2 minute(s), Site: #1 left AC. Medication Ordered: Dilaudid IV 1 mg (HIGH ALERT MEDICATION, NOW). Given :04/15/2017 Lizbeth Garcia, Medication Administered: PHENERGAN [IVP] (PROMETHAZINE HCL), Dose: 25 mg IVP, In: NS, Site: #1 left AC. Medication Ordered: Phenergan IV 25 mg (NOW).
--- NOTE | 2017-04-23 04:36 | ED MED RECONCILIATION SUMMARY ---
Patient: EDUARDO JOHNSON Medication Reconciliation Report [facility] VisitID: [id number] [address] [place] [address] 22y, F Registration Date/Time: 04/15/2017 Weight: 79.3 kg Height/Length: 67 in. BMI: 27.4 ALLERGIES: No Known Drug Allergy The patient's Home Medications are listed below: CONTINUE TAKING THE FOLLOWING MEDICATIONS: Control Pills The source(s) of the original Home Medication information: patient The following Medications were given to the patient in the Emergency Department: IV NS IV Fluids bolus 0, then 1000 mL/hr, administered: 04/15/2017 7:53:00 PM IV NS IV Fluids bolus 0, then 1000 mL/hr, administered: 04/15/2017 7:54:00 PM Fentanyl [IVP] IVP 25 mcg, administered: 04/15/2017 7:54:00 PM Fentanyl [IVP] IVP 25 mcg, administered: 04/15/2017 8:45:00 PM Zofran [IVP] IVP 4 mg, administered: 04/15/2017 8:49:00 PM Ativan [IVP] IVP 0.5 mg, administered: 04/15/2017 9:37:00 PM Fentanyl [IVP] IVP 25 mcg, administered: 04/15/2017 9:44:00 PM Dilaudid [IVP] IVP 1 mg, administered: 04/15/2017 9:53:00 PM PHENERGAN [IVP] IVP 25 mg diluted in NS, administered: 04/15/2017 10:44:00 PM The following Medications were prescribed to the patient: Zofran (orally disintegrating tablets) 4 mg: take 1 orally every 8 hours as needed for nausea and vomiting. Dispense fifteen (15). No refill. Substitution is permissible. -- Lemuel Gutierrez Dr. Percocet 5 mg/325 mg: take 1-2 tablets orally every 6 hours as needed for pain. Dispense thirty (30). No refill. Substitution is permissible. -- Lemuel Gutierrez Dr.
--- NOTE | 2017-04-23 04:36 | ED DISCHARGE INSTRUCTIONS ---
Patient: EDUARDO JOHNSON General Instructions [facility] VisitID: [id number] [place] [address] 22y, F Registration Date/Time: 04/15/2017 Minor blunt injury to the abdomen (left flank). Closed occipital condyle fracture. Acute cervical strain (left sided). Multiple superficial abrasions. (left face and left upper extremity). INSTRUCTIONS Warnings: GENERAL WARNINGS: Return or contact your physician immediately if your condition worsens or changes unexpectedly, if not improving as expected, or if other problems arise. SPECIFICALLY, return if you develop weakness, numbness, tingling, pain or incontinence. abnormal behavior, changes in vision, or other concerns. Your Current Medications: CONTINUE TAKING THE FOLLOWING MEDICATIONS: Control Pills*. Prescription Medications: Zofran (orally disintegrating tablets) 4 mg: take 1 orally every 8 hours as needed for nausea and vomiting. Dispense fifteen (15). No refill. Substitution is permissible. Percocet 5 mg/325 mg: take 1-2 tablets orally every 6 hours as needed for pain. Dispense thirty (30). No refill. Substitution is permissible. Follow-up: Return to the emergency department as needed. Follow up with your doctor in three days. Reason for referral: recheck today's concerns. Summary of care provided to patient via paper. Follow up with doctor [facility]. Reason for referral: recheck today's concerns in 1 - 2 weeks. Call if they do not contact you next week with your appointment time.. Summary of care provided to patient and family via paper. Screening today revealed the patient's blood pressure to be in the normal range. The patient should follow up with a primary care provider for blood pressure management. Understanding of the discharge instructions verbalized by patient and family. ADDITIONAL INFORMATION Neck Sprain Or Strain A sudden force that causes turning or bending of the neck (such as in a car accident) can stretch or tear muscles (strain) and ligaments (sprain) and cause neck pain. Sometimes neck pain occurs after a simple awkward movement. In either case, muscle spasm is commonly present and contributes to the pain. Unless you had a forceful physical injury (for example, a car accident or fall), X-rays are usually not ordered for the initial evaluation of neck pain. If pain continues and dose not respond to medical treatment, X-rays and other tests may be performed at a later time. Home care The following guidelines will help you care for your injury at home: You may feel more soreness and spasm the first few days after the injury. Reduce your activity level until symptoms begin to improve. When lying down, use a comfortable pillow that supports the head and keeps the spine in a neutral position. The position of the head should not be tilted forward or backward. Use ice packs (ice in a plastic bag, wrapped in a towel) to treat acute pain. Apply for 20 minutes every 24 hours during the first two days. Then, begin local heat (hot shower, hot bath or heating pad) andmassageto reduce muscle spasm. Some patients feel best alternating hot and cold treatments, or just staying with one method only. Do what feels the best to you and gives the most relief. You may use acetaminophen or ibuprofen to control pain, unless another pain medicine was prescribed.If you have chronic liver or kidney disease or ever had a stomach ulcer or GI bleeding, talk with your doctor before using these medicines. Follow-up care Follow up with your physician or this facility if your symptoms do not show signs of improvement. Physical therapy may be needed. If you had X-rays today, they didnt show any broken bones, breaks, or fractures. Sometimes fractures dont show up on the first X-ray. Bruises and sprains can sometimes hurt as much as a fracture. These injuries can take time to heal completely. If your symptoms dont improve or they get worse, talk with your doctor. You may need a repeat X-ray. When to seek medical care Get prompt medical attention if any of the following occur: Pain becomes worse or spreads into your arms Weakness or numbness in one or both arms Head Injury, No Wake-Up (Adult) You have had a head injury. It does not appear serious at this time. Symptoms of a more serious problem (concussion, bruising, or bleeding in the brain) may appear later. Therefore, watch for the WARNING SIGNS listed below. Home Care: Your healthcare provider will tell you whether its okay to drive. If so, you can drive yourself home. For the next day or so, be careful when driving or using heavy machinery until you are sure you have no delayed symptoms. During the next 24 hours someone must stay with you to check for the signs below. It is not necessary to stay awake or be awakened during the night. If you have swelling of the face or scalp, apply an ice pack (ice cubes in a plastic bag, wrapped in a towel) for 20 minutes. Do this every 1-2 hours until the swelling starts to go down. Do not use aspirin or ibuprofen (Motrin, Advil) after a head injury.You may use acetaminophen (Tylenol)to control pain, unless another pain medicine was prescribed. [NOTE: If you have chronic liver or kidney disease or ever had a stomach ulcer or GI bleeding, talk with your doctor before using these medicines.] For the next 24 hours: Do not take alcohol, sedatives or medicines that make you sleepy. Avoid strenuous activities. No lifting or straining. If you have had any symptoms of a concussion today (nausea, vomiting, dizziness, confusion, headache, memory loss or if you were knocked out), do not return to sports or any activity that could result in another head injury until all symptoms are gone and you have been cleared by your doctor. A second head injury before fully recovering from the first one can lead to serious brain injury. Follow Up with your doctor if symptoms are not improving after 24 hours, or as directed. [NOTE: A radiologist will review any X-rays or CT scans that were taken. We will notify you of any new findings that may affect your care.] Get Prompt Medical Attention if any of the followingWARNING SIGNS occur: Repeated vomiting Severe or worsening headache or dizziness Unusual drowsiness, or unable to awaken as usual Confusion or change in behavior or speech, memory loss, blurred vision Convulsion (seizure) Increasing scalp or face swelling Redness, warmth or pus from the swollen area Fluid drainage or bleeding from the nose or ears Abdominal Injury [Blunt, Benign] You have had a blow to your abdomen. Based on your visit today, your condition does not seem serious. However, the signs of an internal injury may take more time to appear. Therefore, it is important for you to watch for any new symptoms or worsening of your condition. Home Care: Rest until you are feeling better. Eat a diet low in fiber (called a low-residue diet). Foods allowed include refined breads, white rice, fruit and vegetable juices without pulp, tender meats. These foods will pass more easily through the intestine. Avoid whole-grain foods, whole fruits and vegetables, meats, seeds and nuts, fried or fatty foods, dairy, alcohol and spicy foods until your symptoms go away. You may use acetaminophen (Tylenol) or ibuprofen (Motrin, Advil) to control pain, unless another pain medicine was prescribed. [NOTE: If you have chronic liver or kidney disease or ever had a stomach ulcer or GI bleeding, talk with your doctor before using these medicines.] Follow Up with your doctor or this facility as instructed, or if your pain does not begin to improve in the next 24 hours. Get Prompt Medical Attention if any of the following occur: Increasing abdominal pain or swelling Repeated vomiting Fever of 100.4F (38C) or higher, or as directed by your healthcare provider Blood in vomit or bowel movements (dark red or black color) Blood in urine (pink to dark red) Weakness, dizziness or fainting Ondansetron Oral disintegrating tablet What is this medicine? ONDANSETRON (on LAUREN se kevin) is used to treat nausea and vomiting caused by chemotherapy. It is also used to prevent or treat nausea and vomiting after surgery. How should I use this medicine? These tablets are made to dissolve in the mouth. Do not try to push the tablet through the foil backing. With dry hands, peel away the foil backing and gently remove the tablet. Place the tablet in the mouth and allow it to dissolve, then swallow. While you may take these tablets with water, it is not necessary to do so. Talk to your crop quantitative geneticist regarding the use of this medicine in children. Special care may be needed. What side effects may I notice from receiving this medicine? Side effects that you should report to your doctor or health child day care teacher as soon as possible: allergic reactions like skin rash, itching or hives, swelling of the face, lips, or tongue breathing problems dizziness fast or irregular heartbeat feeling faint or lightheaded, falls fever and chills swelling of the hands and feet tightness in the chest Side effects that usually do not require medical attention (report to your doctor or health child day care teacher if they continue or are bothersome): constipation or diarrhea headache What may interact with this medicine? Do not take this medicine with any of the following medications: -apomorphine -cisapride -dofetilide -dronedarone -pimozide -thioridazine -ziprasidone This medicine may also interact with the following medications: -carbamazepine -phenytoin -rifampicin -tramadol -other medicines that prolong the QT interval (cause an abnormal heart rhythm) What if I miss a dose? If you miss a dose, take it as soon as you can. If it is almost time for your next dose, take only that dose. Do not take double or extra doses. Where should I keep my medicine? Keep out of the reach of children. Store between 2 and 30 degrees C (36 and 86 degrees F). Throw away any unused medicine after the expiration date. What should I tell my health care provider before I take this medicine? They need to know if you have any of these conditions: heart disease history of irregular heartbeat liver disease low levels of magnesium or potassium in the blood an unusual or allergic reaction to ondansetron, granisetron, other medicines, foods, dyes, or preservatives or trying to get breast-feeding What should I watch for while using this medicine? Check with your doctor or health child day care teacher as soon as you can if you have any sign of an allergic reaction. Oxycodone Hydrochloride, Acetaminophen Oral tablet What is this medicine? ACETAMINOPHEN; OXYCODONE (a set a RAFAELA saul fen; ox i KOE done) is a pain reliever. It is used to treat mild to moderate pain. How should I use this medicine? Take this medicine by mouth with a full glass of water. Follow the directions on the prescription label. Take your medicine at regular intervals. Do not take your medicine more often than directed. Talk to your crop quantitative geneticist regarding the use of this medicine in children. Special care may be needed. Patients over 65 years old may have a stronger reaction and need a smaller dose. What side effects may I notice from receiving this medicine? Side effects that you should report to your doctor or health child day care teacher as soon as possible: allergic reactions like skin rash, itching or hives, swelling of the face, lips, or tongue breathing difficulties, wheezing confusion light headedness or fainting spells severe stomach pain yellowing of the skin or the whites of the eyes Side effects that usually do not require medical attention (report to your doctor or health child day care teacher if they continue or are bothersome): dizziness drowsiness nausea vomiting What may interact with this medicine? alcohol antihistamines barbiturates like amobarbital, butalbital, butabarbital, methohexital, pentobarbital, phenobarbital, thiopental, and secobarbital benztropine drugs for bladder problems like solifenacin, trospium, oxybutynin, tolterodine, hyoscyamine, and methscopolamine drugs for breathing problems like ipratropium and tiotropium drugs for certain stomach or intestine problems like propantheline, homatropine methylbromide, glycopyrrolate, atropine, belladonna, and dicyclomine general anesthetics like etomidate, ketamine, nitrous oxide, propofol, desflurane, enflurane, halothane, isoflurane, and sevoflurane medicines for depression, anxiety, or psychotic disturbances medicines for sleep muscle relaxants naltrexone narcotic medicines (opiates) for pain phenothiazines like perphenazine, thioridazine, chlorpromazine, mesoridazine, fluphenazine, prochlorperazine, promazine, and trifluoperazine scopolamine tramadol trihexyphenidyl What if I miss a dose? If you miss a dose, take it as soon as you can. If it is almost time for your next dose, take only that dose. Do not take double or extra doses. Where should I keep my medicine? Keep out of the reach of children. This medicine can be abused. Keep your medicine in a safe place to protect it from theft. Do not share this medicine with anyone. Selling or giving away this medicine is dangerous and against the law. Store at room temperature between 20 and 25 degrees C (68 and 77 degrees F). Keep container tightly closed. Protect from light. This medicine may cause accidental overdose and if it is taken by other adults, children, or pets. Flush any unused medicine down the toilet to reduce the chance of harm. Do not use the medicine after the expiration date. What should I tell my health care provider before I take this medicine? They need to know if you have any of these conditions: brain tumor Crohn's disease, inflammatory bowel disease, or ulcerative colitis drink more than 3 alcohol containing drinks per day drug abuse or addiction head injury heart or circulation problems kidney disease or problems going to the bathroom liver disease lung disease, asthma, or breathing problems an unusual or allergic reaction to acetaminophen, oxycodone, other opioid analgesics, other medicines, foods, dyes, or preservatives or trying to get breast-feeding What should I watch for while using this medicine? Tell your doctor or health child day care teacher if your pain does not go away, if it gets worse, or if you have new or a different type of pain. You may develop tolerance to the medicine. Tolerance means that you will need a higher dose of the medication for pain relief. Tolerance is normal and is expected if you take this medicine for a long time. Do not suddenly stop taking your medicine because you may develop a severe reaction. Your body becomes used to the medicine. This does NOT mean you are addicted. Addiction is a behavior related to getting and using a drug for a non-medical reason. If you have pain, you have a medical reason to take pain medicine. Your doctor will tell you how much medicine to take. If your doctor wants you to stop the medicine, the dose will be slowly lowered over time to avoid any side effects. You may get drowsy or dizzy. Do not drive, use machinery, or do anything that needs mental alertness until you know how this medicine affects you. Do not stand or sit up quickly, especially if you are an older patient. This reduces the risk of dizzy or fainting spells. Alcohol may interfere with the effect of this medicine. Avoid alcoholic drinks. There are different types of narcotic medicines (opiates) for pain. If you take more than one type at the same time, you may have more side effects. Give your health care provider a list of all medicines you use. Your doctor will tell you how much medicine to take. Do not take more medicine than directed. Call emergency for help if you have problems breathing. The medicine will cause constipation. Try to have a bowel movement at least every 2 to 3 days. If you do not have a bowel movement for 3 days, call your doctor or health child day care teacher. Do not take Tylenol (acetaminophen) or medicines that have acetaminophen with this medicine. Too much acetaminophen can be very dangerous. Many nonprescription medicines contain acetaminophen. Always read the labels carefully to avoid taking more acetaminophen. You have been given the following additional information: Neck Sprain/Strain HEAD INJURY, No Wake-Up (Adult) Abdominal Trauma, Blunt (Benign) Ondansetron Oral disintegrating tablet Oxycodone Hydrochloride, Acetaminophen Oral tablet (Electronically signed by Lemuel Gutierrez Dr. 04/23/2017 4:35)
--- NOTE | 2017-04-23 04:36 | ED MED RECONCILIATION SUMMARY ---
Patient: EDUARDO JOHNSON Medication Reconciliation Report [facility] VisitID: [id number] [place] [address] 22y, F Registration Date/Time: 04/15/2017 Weight: 79.3 kg Height/Length: 67 in. BMI: 27.4 ALLERGIES: No Known Drug Allergy The patient's Home Medications are listed below: CONTINUE TAKING THE FOLLOWING MEDICATIONS: Control Pills The source(s) of the original Home Medication information: patient The following Medications were given to the patient in the Emergency Department: IV NS IV Fluids bolus 0, then 1000 mL/hr, administered: 04/15/2017 7:53:00 PM IV NS IV Fluids bolus 0, then 1000 mL/hr, administered: 04/15/2017 7:54:00 PM Fentanyl [IVP] IVP 25 mcg, administered: 04/15/2017 7:54:00 PM Fentanyl [IVP] IVP 25 mcg, administered: 04/15/2017 8:45:00 PM Zofran [IVP] IVP 4 mg, administered: 04/15/2017 8:49:00 PM Ativan [IVP] IVP 0.5 mg, administered: 04/15/2017 9:37:00 PM Fentanyl [IVP] IVP 25 mcg, administered: 04/15/2017 9:44:00 PM Dilaudid [IVP] IVP 1 mg, administered: 04/15/2017 9:53:00 PM PHENERGAN [IVP] IVP 25 mg diluted in NS, administered: 04/15/2017 10:44:00 PM The following Medications were prescribed to the patient: Zofran (orally disintegrating tablets) 4 mg: take 1 orally every 8 hours as needed for nausea and vomiting. Dispense fifteen (15). No refill. Substitution is permissible. -- Lemuel Gutierrez Dr. Percocet 5 mg/325 mg: take 1-2 tablets orally every 6 hours as needed for pain. Dispense thirty (30). No refill. Substitution is permissible. -- Lemuel Gutierrez Dr.
== END 2017-04-16 00:20 | disposition home or self-care (01) ==
LOC: ED SRH 19:35
DX: S02.113A Unspecified occipital condyle fracture, initial encounter for closed fracture (principal); S16.1XXA Strain of muscle, fascia and tendon at neck level, initial encounter; S39.91XA Unspecified injury of abdomen, initial encounter; S40.812A Abrasion of left upper arm, initial encounter; V80.010A Animal-rider injured by fall from or being thrown from horse in noncollision accident, initial encounter; Y93.52 Activity, horseback riding; Y92.9 Unspecified place or not applicable; Y99.9 Unspecified external cause status
CPT/HCPCS: 81460; 90001; 90004; 90100; 90155; 91004; 92235; 93070; 94001; 94060; 95059